=== PATIENT | female | born 1930 | race Caucasian/White ===

== ENCOUNTER → 2017-01-07 | Outpatient (CLI) | payer MEDICARE ==
[~2017-01-07] MED LIST: ASCO25TA PO; ATEN25TA PO; CLON0.5T PO; COUM1TAB17 PO; LISI40TAB PO; METF500T PO; OMEP40CA2 PO; PARO30TA PO; PRIL20CA9 PO; TEMA15CA2 PO
--- NOTE | 2017-01-07 15:17 | REPMRS ---
Patient History The patient states she had a clinical breast exam in 12/17 No known family history of cancer. Benign excisional biopsy of the left breast. Benign excisional biopsy of the right breast. Digital Woman Screen Mammo: January 07, 2017 - Exam #: [id number] Bilateral CC and MLO view(s) were taken. Technologist: Ana Lowe, Technologist Prior study comparison: January 12, 2016, digital woman screen mammo performed at [facility]. January 13, 2015, digital woman screen mammo performed at [facility]. FINDINGS: The breast tissue is heterogeneously dense. This may lower the sensitivity of mammography. There has been no change in the appearance of the mammogram from the prior studies. There is a moderate amount of residual fibroglandular tissue which is fairly symmetric. There is no interval development of dominant mass, areas of architectural distortion, or clustered microcalcification typical of malignancy. ASSESSMENT: BI-RADS/ACR category 1 mammogram. Negative. Recommendation Routine screening mammogram in 1 year (for women over age 40). This mammogram was interpreted with the aid of an FDA-approved computer-aided dectection system. Electronically Signed By: Luciano White MD 01/07/17 2187
== END ==
LOC: M WHC 14:18
PROVIDERS: ATTEND Family Medicine
DX: Z12.31 Encounter for screening mammogram for malignant neoplasm of breast (principal)